=== PATIENT | male | born 1955 | race Caucasian/White ===

== ENCOUNTER → 2017-10-19 | Outpatient (CLI) | payer BC ==
[~2017-10-19] MED LIST: AMIT-108 PO; CALC1TAB46 PO; CHOL100059 PO; CHRO400T10 PO; CRAN1CAP13 PO; CYAN500L4 PO; GLUC100026 PO; LEVO150T78 PO; LISI2.5T60 PO; MAGN500C10 PO; METF-410 PO; MULT1TAB54 PO; OMEG-36 PO; OMEP40CA48 PO; POTA99TA2 PO; ROSU5TAB8 PO; SUMA100T33 PO; TRAM-420 PO; UBID1CAP4 PO; VITA-200 PO; VITA0.4T10 PO; ZOLP-350 PO; [UNRECOGNIZED DRUG - CODE] PO
--- NOTE | 2017-10-19 13:28 | EKG ---
FACILITY: [facility] PATIENT NAME: JUAN R BROUSSARD : [id number] MR: [id number] V: [id number] EXAM DATE: ORDERING PHYSICIAN: NIKOS GOMEZ TECHNOLOGIST: ANGELY Armando Reason : PRE-OP SHOULDER Blood Pressure : / mmHG Vent. Rate : 084 BPM Atrial Rate : 084 BPM P-R Int : 168 ms QRS Dur : 156 ms QT Int : 378 ms P-R-T Axes : 054 -04 028 degrees QTc Int : 446 ms Normal sinus rhythm Right bundle branch block Inferior infarct , age undetermined Abnormal ECG No previous ECGs available Confirmed by MARIANA PALM ([id number]) on 10/19/2017 10:14:15 PM Referred By: JASON Confirmed By:MARIANA PALM
== END ==
LOC: LAB 13:02
PROVIDERS: ATTEND Anesthesiology
DX: Z01.812 Encounter for preprocedural laboratory examination (principal); Z01.810 Encounter for preprocedural cardiovascular examination; I45.10 Unspecified right bundle-branch block; M25.511 Pain in right shoulder; M71.9 Bursopathy, unspecified; E11.9 Type 2 diabetes mellitus without complications
CPT/HCPCS: 36415; 83036; 93005

== ENCOUNTER 2017-10-26 01:28 | Day surgery (SDC) | payer BC ==
[~2017-10-26] VITALS: Ht 182.9 cm; Wt 126.6 kg
[2017-10-26] VITALS (8 sets, daily range): BP systolic 129–164; BP diastolic 92–119
[~2017-10-26 01:28] MED LIST changes: +GLUC500T22 PO; +LEVO175T42 PO; +TRIA15OI20 TP
[2017-10-26] MEDS ORDERED: ROCURONIUM BROM 10 MG/ML 10 ML ONE (09:56)
[2017-10-26] MEDS ORDERED: fentaNYL CITR 250 MCG/5 ML AMP ONE (09:56)
[2017-10-26] MEDS ORDERED: PROPOFOL EMUL(*) 10MG/ML 20 ML 20 ML ONE (09:56)
[2017-10-26] MEDS ORDERED: LIDOCAINE MPF 1% 5 ML VIAL ONE (09:56)
[2017-10-26] MEDS ORDERED: SUGAMMADEX SOD 200 MG/2 ML SDV ONE (09:56)
[2017-10-26] MEDS ORDERED: DEXAMETHASONE SOD 4 MG/ML VIAL ONE (09:56)
[2017-10-26] MEDS ORDERED: ONDANSETRON 4 MG/2 ML VIAL ONE (09:56)
[2017-10-26] MEDS ORDERED: ROPIVACAINE 0.2% 20 ML VIAL ONE (10:26)
[2017-10-26] MEDS ORDERED: NEOMYCIN/POLYMYX/BACITR 30 GM TP ONE (10:26)
[2017-10-26] MEDS ORDERED: BUPIV/EPI 0.25% 1:200,000 50ML INFIL ONE (10:26)
[2017-10-26] MEDS ORDERED: NORMOSOL R SOLN(*) 1000 ML BAG 1,000 ML IV PRN (11:00)
[2017-10-26] MEDS ORDERED: ceFAZolin(*) 2GM/D5W 50ML 50 ML IVPB ONE (11:00)
[2017-10-26] MEDS ORDERED: LIDOCAINE/SOD BICARB 8.4% SYR ID ONE (11:00)
[2017-10-26] MEDS ORDERED: FAMOTIDINE 20 MG TAB PO ONE (11:00)
[2017-10-26] MEDS ORDERED: MIDAZOLAM 2 MG/2 ML VIAL IVP ONE (11:00)
[2017-10-26] MEDS ORDERED: KETAMINE HCL 200 MG/20 ML MDV ONE (12:30)
[2017-10-26] MEDS ORDERED: CEPH250C37 PO (14:33)
[2017-10-26] MEDS ORDERED: HYDR-385 PO (14:34)
[2017-10-26] MEDS ORDERED: APAP/HYDROCODONE 325/5 TAB ONE (15:38)
--- NOTE | 2017-10-26 22:44 | OPERATIVE REPORT 1 ---
EVENT DATE: October 26, 2017 SURGEON: Mohan Joyce MD ANESTHESIOLOGIST: Darinel aWters MD ANESTHESIA: General plus scalene block. TOOL POLISHING MACHINE OPERATOR: LAMONT Reid PREOPERATIVE DIAGNOSES 1. Right shoulder subacromial impingement with acromioclavicular joint degenerative joint disease. 3. Possible labral fraying. 3. No capacity for MRI due to cochlear implant. POSTOPERATIVE DIAGNOSES 1. Moderate labral fraying. 2. One small grade IV lesion in central part of glenoid adjacent to bare area. 3. No rotator cuff tear. 4. Substantial subacromial bursitis and impingement. 5. Acromioclavicular joint degenerative joint disease. PROCEDURES PERFORMED Right shoulder arthroscopy with debridement of labrum, microfracture of central glenoid defect, bursectomy, subacromial decompression, and lateral clavicle excision. ESTIMATED BLOOD LOSS Minimal. INTRAVENOUS FLUIDS (Please see anesthesia record.) SPECIMENS No specimens. COMPLICATIONS No complications. IMPLANTS USED No implants. SUMMARY OF PROCEDURE The patient was brought into the operating room and placed on the OR table in the supine position. He was given a scalene block under ultrasound guidance by Dr. Waters, after which Dr. Waters undertook a general anesthetic. We then placed him into the beach chair position, taking care to adequately pad his head , bend his knees, and also to support his back. He was secured on the table with additional tape, and then we proceeded to mount the system for the Ramos arm hull for traction and positioning. He was prepped and draped in standard sterile fashion. We then started the arthroscopic procedure with a posterior visualization and an anterior instrumentation portal. The axillary recess was free of loose bodies. There was a little fraying on the anteroinferior labrum, but more significant fraying on the anterior labrum. The superior labrum was normal. There was some redundant tissue on the posterosuperior labrum, but it was not really a tear. The biceps anchor was in excellent condition, as was the intra-articular portion of the biceps. The extra-articular portion was drawn into the joint to examine it, and it was normal. The subscapularis had some superficial fraying and partial tearing, but certainly nothing that required a repair. This was debrided and then sealed off with a radiofrequency probe. The supraspinatus and infraspinatus as well as down to the teres minor looked normal on insertion. For the bare area, we examined this, and unfortunately, there was a large delamination that extended anteroinferiorly from the bare area that was a full-thickness loss of cartilage. This tissue was debrided with a shaver and then a radiofrequency probe to seal the margin, after which I used a 45-degree awl to make a series of holes in the central defect of the glenoid. This was well contained with surrounding cartilage that was intact; therefore, I did not feel it would be necessary to keep him nonweightbearing. We then moved on to the subacromial space. The camera was repositioned posteriorly into the subacromial space, and then an accessory lateral portal was created. We did a brief bursectomy with a shaver and then used a radiofrequency probe to remove soft tissue from the underside of the acromion. He had a very large subacromial spur with a knife-like anteromedial spur. This was fully exposed with a radiofrequency probe until it was around the corner so we could identify its maximum extent. We also removed the soft tissues from around the AC joint. We then used a 4.0 mm bur to decompress the subacromial space, removing quite a bit of bone, getting down to a nice, flat surface. I then did the same for the AC joint, removing approximately 7 to 8 mm. We then used a shaver to effectively remove the rest of the bursa and expose the subacromial surface of the rotator cuff which was found to be in good condition. The arthroscope was then used to drain the shoulder, after which he was awakened and transferred to the recovery area in stable condition, having previously closed the arthroscopic portals with nylon. Injections had been given before the surgical procedure started, so no additional injection was necessary. He was transferred to the recovery area in stable condition. TANYA
== END 2017-10-26 14:30 | disposition home or self-care (01) ==
LOC: OR 01:28
PROVIDERS: ATTEND Orthopaedic Surgery Hand Surgery
DX: M75.41 Impingement syndrome of right shoulder (principal); M19.011 Primary osteoarthritis, right shoulder; S43.431A Superior glenoid labrum lesion of right shoulder, initial encounter; M75.51 Bursitis of right shoulder; E11.9 Type 2 diabetes mellitus without complications
CPT/HCPCS: 29822; 36416; 82948; J1100; J2001; J2250; J2405; J2704; J2795; J3010; J3490; 76942; J0690; L3670

== ENCOUNTER → 2017-11-24 | Outpatient (CLI) | payer BC ==
[~2017-11-24] MED LIST changes: +AZIT-17 PO; +CEPH250C37 PO; +CEPH500T7 PO; +CHOL10005 PO; +FLUT16SP19 NS; +HYDR-385 PO; +LEVO25TA57 PO; -METF-410 PO; +METF-411 PO; +PNEU0.5D3 IM; +SUMA100T32 PO
[2017-11-24 09:06] LABS: PLATELET COUNT, AUTOMATED 199 K/uL (150-450)
[2017-11-24 10:55] LABS: LDL CHOLESTEROL 86 mg/dl
== END ==
LOC: LAB 08:29
PROVIDERS: ATTEND Internal Medicine
DX: L30.9 Dermatitis, unspecified (principal); E03.9 Hypothyroidism, unspecified; E78.5 Hyperlipidemia, unspecified; I10 Essential (primary) hypertension; E11.9 Type 2 diabetes mellitus without complications; Z96.21 Cochlear implant status; E55.9 Vitamin D deficiency, unspecified
CPT/HCPCS: 36415; 81001; 82040; 82043; 82247; 82306; 82310; 82374; 82435; 82465; 82565; 82947; 83036; 83718; 84075; 84132; 84153; 84155; 84295; 84439; 84443; 84450; 84460; 84478; 84520; 84550; 85025

== ENCOUNTER 2017-12-24 01:44 | Day surgery (SDC) | payer BC ==
[~2017-12-24] VITALS: Ht 177.8 cm; Wt 127.0 kg
[~2017-12-24 01:44] MED LIST changes: -AZIT-17 PO; -CEPH500T7 PO; -FLUT16SP19 NS; -LEVO25TA57 PO
[2017-12-24 06:20] VITALS: BP 136/95
[2017-12-24] MEDS ORDERED: FAMOTIDINE 20 MG TAB PO ONE (06:25)
[2017-12-24] MEDS ORDERED: LIDOCAINE/SOD BICARB 8.4% SYR ID ONE (06:30)
[2017-12-24] MEDS ORDERED: MIDAZOLAM 2 MG/2 ML VIAL IVP PRN (06:30)
[2017-12-24] MEDS ORDERED: ceFAZolin(*) 2GM/D5W 50ML 50 ML IVPB ONE (06:30)
[2017-12-24] MEDS ORDERED: NORMOSOL R SOLN(*) 1000 ML BAG 1,000 ML IV PRN (06:30)
[2017-12-24] MEDS ORDERED: NEOMYCIN/POLYMYX/BACITR 30 GM TP ONE (06:38)
[2017-12-24] MEDS ORDERED: BUPIV/EPI 0.25% 1:200,000 50ML INFIL ONE (06:38)
[2017-12-24] MEDS ORDERED: ROPIVACAINE 0.2% 20 ML VIAL ONE (06:38)
[2017-12-24] MEDS ORDERED: fentaNYL CITR 100 MCG/2 ML AMP ONE ×2 (06:46→07:30)
[2017-12-24] MEDS ORDERED: PROPOFOL EMUL(*) 10MG/ML 20 ML 20 ML ONE (06:46)
[2017-12-24] MEDS ORDERED: ONDANSETRON 4 MG/2 ML VIAL ONE (06:46)
[2017-12-24] MEDS ORDERED: LIDOCAINE MPF 1% 5 ML VIAL ONE (06:46)
[2017-12-24] MEDS ORDERED: DEXAMETHASONE SOD 4 MG/ML VIAL ONE (06:46)
[2017-12-24] MEDS ORDERED: NS 0.9% 20 ML SDV 20 ML ONE (06:50)
[2017-12-24] MEDS ORDERED: ROPIVACAINE 0.5% 20 ML VIAL ONE (06:50)
[2017-12-24] MEDS ORDERED: EPINEPHrine HCL 1 MG/ML AMP ONE (06:50)
[2017-12-24] MEDS ORDERED: LIDOCAINE 2% JELLY 5 ML TUBE ONE (06:54)
[2017-12-24] MEDS ORDERED: ePHEDrine 25 MG/5 ML DISP.SYR IVP ONE (07:35)
[2017-12-24] MEDS ORDERED: HYDR-385 PO (09:33)
[2017-12-24] MEDS ORDERED: CEPH500T7 PO (09:36)
[2017-12-24 10:06] VITALS: BP 120/84
[2017-12-24 10:37] VITALS: BP 123/84
[2017-12-24 11:09] VITALS: BP_SYST 137; BP_SYST 141; BP_DIAS 91; BP_DIAS 93
--- NOTE | 2017-12-24 14:42 | OPERATIVE REPORT 1 ---
EVENT DATE: December 24, 2017 SURGEON: Mohan Joyce MD ANESTHESIOLOGIST: Bhavesh Mueller MD ANESTHESIA: General plus scalene block. E COMMERCE ARCHITECT: Reji Mantilla PA-C PREOPERATIVE DIAGNOSIS Left shoulder subacromial impingement with acromioclavicular joint degenerative joint disease and probable labral damage. POSTOPERATIVE DIAGNOSES 1. Anterior and anterosuperior labral fraying with partial tearing at glenoid. 2. Partial deep surface subscapularis tearing approximately 10% to 15%. 3. Partial undersurface tearing supraspinatus, approximately 5% to 10%. 4. Subacromial impingement. 5. Acromioclavicular joint degenerative joint disease with bursitis. PROCEDURES PERFORMED 1. Left shoulder arthroscopy with debridement of anterior and anterosuperior labrum. 2. Debridement of undersurface rotator cuff at subscapularis and supraspinatus. 3. Lateral clavicle excision. 4. Bursectomy. ESTIMATED BLOOD LOSS Minimal. INTRAVENOUS FLUIDS Crystalloid 1200, no colloid. TOURNIQUET TIME No tourniquet. COMPLICATIONS No complications. IMPLANTS USED No implants. SPECIMENS No specimens. SUMMARY OF PROCEDURE Patient was brought into the operating room and placed on the OR table in the supine position. He was given a scalene block by Dr. Mueller, after which he was given a light general anesthetic and placed in the beach chair position. An Ramos shoulder hull was used for traction and positioning. After adequate prep and drape, including Ioban placed into the axilla, standard arthroscopic assessment was undertaken beginning with injection of the intended arthroscopic portals with lidocaine with epinephrine. Subsequently, we started with a posterior visualization and an anterior instrumentation portal. The axillary recess was free of loose bodies. The articular surfaces were in relatively good condition with only grade I changes of the humeral head showing some slight fibrillation, but the glenoid actually looked like it was in better condition than the opposite shoulder. There was a region of tearing in the anterior labrum where there was a partial detachment, but certainly nothing that looked like it would cause instability. This area was debrided. Similarly , there was some redundant tissue along the superior margin of the labrum, but again, no instability of the biceps anchor. There was a bit of injection and inflammatory change at the extraarticular portion of the biceps when drawn into the joint to take a look at it, but nothing that looked mechanical and, therefore, the biceps was left in place. There was some mild undersurface tearing of the supraspinatus, not at the infraspinatus, and the subscapularis had a bit more and a rather unusual pattern of tearing wherein the articular side had a series of large areas of frayed partial delaminations, but the actual attachment to the lesser tuberosity was normal, and the biceps was stable. We used a shaver to debride the subscapularis and undersurface of the infraspinatus and used a radiofrequency probe to seal off the margins. Similarly, the area that we had debrided on the labrum was also sealed off with a radiofrequency probe. We then moved to the subacromial space where he had a moderate amount of bursitis. This was debrided. We cleared the undersurface of the acromion, the calcified portion of the coracoacromial ligament, and the undersurface of the clavicle with radiofrequency energy and then used a lisa to effect a subacromial decompression and lateral clavicle excision. We checked the articular surface for any other rotator cuff damage, and none was seen. He was then closed up with nylon, followed by awakening, placement of a sling which would be p.r.n., and then transfer to the recovery area in stable condition. TANYA
[2017-12-30] MEDS ORDERED: AZIT-17 PO (10:22)
[2017-12-30] MEDS ORDERED: FLUT16SP19 NS (10:22)
== END 2017-12-24 10:06 | disposition home or self-care (01) ==
LOC: OR 01:44
PROVIDERS: ATTEND Orthopaedic Surgery Hand Surgery
DX: M19.012 Primary osteoarthritis, left shoulder (principal); M75.42 Impingement syndrome of left shoulder; M75.112 Incomplete rotator cuff tear or rupture of left shoulder, not specified as traumatic; E11.9 Type 2 diabetes mellitus without complications
CPT/HCPCS: 29823; 29826; 36416; 76942; 82948; J0171; J1100; J2001; J2250; J2405; J2704; J2795; J3010; J7050; L3670; J0690

== ENCOUNTER → 2018-03-10 | Outpatient (CLI) | payer MEDICARE, OTHER ==
[~2018-03-10] MED LIST changes: +AZIT-17 PO; +CEPH500T7 PO; +DIPH0.5D12 IM; +FLUT16SP19 NS; +LEVO25TA57 PO; +PANT40TA65 PO; +ROSU10TA5 PO
[2018-03-10 08:20] LABS: PLATELET COUNT, AUTOMATED 192 K/uL (150-450)
[2018-03-10 09:12] LABS: LDL CHOLESTEROL 52 mg/dl
== END ==
LOC: LAB 07:36
PROVIDERS: ATTEND Internal Medicine
DX: E11.9 Type 2 diabetes mellitus without complications (principal); I10 Essential (primary) hypertension; E78.5 Hyperlipidemia, unspecified; G47.33 Obstructive sleep apnea (adult) (pediatric); E03.9 Hypothyroidism, unspecified; Z98.84 Bariatric surgery status
CPT/HCPCS: 36415; 81001; 82040; 82247; 82310; 82374; 82435; 82465; 82565; 82947; 83036; 83718; 84075; 84132; 84155; 84295; 84439; 84443; 84450; 84460; 84478; 84520; 85025

== ENCOUNTER → 2018-03-15 | Outpatient (CLI) | payer MEDICARE, OTHER ==
--- NOTE | 2018-03-15 09:23 | RADIOLOGY IMAGING REPORT ---
FACILITY: [facility] [place] PATIENT NAME: Cecilio Carmen : 1955 MR: [id number] V: [id number] EXAM DATE: ORDERING PHYSICIAN: DORA THOMAS TECHNOLOGIST: Location: [facility] [place] Patient: Cecilio Carmen : 1955 Visit/Account:[id number] Date of Sevice: 03/15/2018 EXAMINATION: Aorta ultrasound with duplex Doppler evaluation HISTORY: Screening COMPARISON: None. FINDINGS: Suprarenal abdominal aorta: 1.8 x 1.7 cm AP and transverse dimensions Superior infrarenal abdominal aorta: 2.1 x 2.3 cm AP and transverse dimensions Mid infrarenal abdominal aorta: 1.5 x 1.8 cm AP and transverse dimensions Inferior infrarenal abdominal aorta: 1.5 x 1.6 cm AP and transverse dimensions Proximal common iliac artery diameter: Left 10 mm; right 10 mm Aorta wall: Negative. Aorta and proximal common iliac artery are patent by duplex Doppler ultrasound. IMPRESSION: No evidence of an abdominal aortic aneurysm. Report Dictated By: Annamaria Salazar MD at 03/15/2018 9:16 AM Report E-Signed By: Annamaria Salazar MD at 03/15/2018 9:17 AM WSN:[email or web address]
== END ==
LOC: US 01:20
PROVIDERS: ATTEND Internal Medicine
DX: Z00.00 Encounter for general adult medical examination without abnormal findings (principal); Z13.6 Encounter for screening for cardiovascular disorders
CPT/HCPCS: 93978

== ENCOUNTER → 2018-07-14 | Outpatient (CLI) | payer MEDICARE, OTHER ==
[~2018-07-14] MED LIST changes: +AMIT-104 PO; +AMOX-559 PO; +FLU180SY11 IM; +GABA-547 PO; +MELA1TAB2 PO; -METF-411 PO; +METF-450 PO
[2018-07-14 09:33] LABS: PLATELET COUNT, AUTOMATED 192 K/uL (150-450)
[2018-07-14 10:08] LABS: LDL CHOLESTEROL 57 mg/dl
== END ==
LOC: LAB 09:08
PROVIDERS: ATTEND Internal Medicine
DX: K21.9 Gastro-esophageal reflux disease without esophagitis (principal); Z98.84 Bariatric surgery status; E03.9 Hypothyroidism, unspecified; G47.33 Obstructive sleep apnea (adult) (pediatric); E78.5 Hyperlipidemia, unspecified; I10 Essential (primary) hypertension; E11.9 Type 2 diabetes mellitus without complications; G47.00 Insomnia, unspecified
CPT/HCPCS: 36415; 81001; 82040; 82247; 82310; 82374; 82435; 82465; 82565; 82947; 83036; 83718; 84075; 84132; 84155; 84295; 84443; 84450; 84460; 84478; 84520; 84550; 85025

== ENCOUNTER → 2019-01-03 | Outpatient (CLI) | payer MEDICARE, OTHER ==
[~2019-01-03] MED LIST changes: +AMIT75TA42 PO; -DIPH0.5D12 IM; +DIPH0.5S2 IM; +MELA5TAB3 PO
[2019-01-03 08:47] LABS: PLATELET COUNT, AUTOMATED 205 K/uL (150-450)
[2019-01-03 10:00] LABS: LDL CHOLESTEROL 72 mg/dl
== END ==
LOC: LAB 08:29
PROVIDERS: ATTEND Internal Medicine
DX: E11.9 Type 2 diabetes mellitus without complications (principal); I10 Essential (primary) hypertension; E78.5 Hyperlipidemia, unspecified; G47.33 Obstructive sleep apnea (adult) (pediatric); E03.9 Hypothyroidism, unspecified; Z96.21 Cochlear implant status
CPT/HCPCS: 36415; 81001; 82043; 83036; 84443; 85025; G0103; 82040; 82247; 82310; 82374; 82435; 82465; 82565; 82947; 83718; 84075; 84132; 84153; 84155; 84295; 84450; 84460; 84478; 84520

== ENCOUNTER → 2019-01-17 | Outpatient (CLI) | payer MEDICARE, OTHER ==
[~2019-01-17] MED LIST changes: +GABA-549 PO; +ROSU10TA FT; +ROSU10TA PO
== END ==
LOC: LAB 08:33
PROVIDERS: ATTEND Internal Medicine
DX: I10 Essential (primary) hypertension (principal); E11.9 Type 2 diabetes mellitus without complications; R94.5 Abnormal results of liver function studies; E78.5 Hyperlipidemia, unspecified
CPT/HCPCS: 36415; 80074; 82040; 82247; 82310; 82374; 82435; 82565; 82728; 82947; 83540; 83550; 84075; 84132; 84155; 84295; 84450; 84460; 84520; 84550; 86038; 86039

== ENCOUNTER → 2019-01-23 | Outpatient (CLI) | payer MEDICARE, OTHER ==
--- NOTE | 2019-01-23 15:52 | RADIOLOGY IMAGING REPORT ---
FACILITY: [facility] [place] PATIENT NAME: Cecilio Carmen : 1955 MR: [id number] V: [id number] EXAM DATE: ORDERING PHYSICIAN: DORA THOMAS TECHNOLOGIST: Location: [facility] Patient: Cecilio Carmen : 1955 Visit/Account:[id number] Date of Sevice: 01/23/2019 Limited abdominal ultrasound of the right upper quadrant Indication: , Elevated LFTs Comparison: None available Findings Liver is enlarged and diffusely increased in echogenicity, but normal in contour and measures 22.9 cm in length. There is normal hepatopedal portal venous flow. Gallbladder wall thickness is 3.9 mm with no evidence of shadowing stone or sludge within the gallbla dder lumen. Negative sonographic Lopez's sign reported by the technologist. Common duct measures 3.4 mm in maximum diameter with no evidence of shadowing stone. The pancreas is obscured by bowel gas Abdominal aorta and IVC are patent and unremarkable. The right kidney is normal in size, contour, and echotexture and measures 13.8 cm in length. IMPRESSION: 1. Hepatomegaly with diffusely increased echogenicity liver. Diagnostic considerations are hepatic steatosis versus hepatocellular disease. 2. Nonvisualized pancreas, the remainder of the examination is within normal limits. Report Dictated By: Elias Crow at 01/23/2019 3:45 PM Report E-Signed By: Elias Crow at 01/23/2019 3:47 PM WSN:[id number]
== END ==
LOC: US 00:21
PROVIDERS: ATTEND Internal Medicine
DX: K76.0 Fatty (change of) liver, not elsewhere classified (principal)
CPT/HCPCS: 76705